=== PATIENT | male | born 1945 | race Caucasian/White ===

== ENCOUNTER 2020-03-05 13:00 | Inpatient (IN) | payer MEDICARE, BC ==
[~2020-03-05] VITALS: Ht 188 cm; Wt 65.8 kg
--- NOTE | 2020-03-05 13:27 | NUR ---
Patient seen by Dr. Meier..
[2020-03-05 13:42] LABS: BASOPHILS # (AUTO) 0.1 K/uL (0.0-8.0); EOSINOPHILS # (AUTO) 0.1 K/uL (0.0-0.7); HEMATOCRIT 21.4 % (36.7-47.1); LYMPHOCYTES # (AUTO) 1.2 K/uL (20.0-40.0); MONOCYTES # (AUTO) 2.3 K/uL (2.0-10.0)
[2020-03-05] MEDS ORDERED: [UNRECOGNIZED DRUG - CODE] GT (13:48)
[2020-03-05] MEDS ORDERED: INSU3INS6 SQ (13:48)
[2020-03-05] MEDS ORDERED: OMEP20CA15 GT (13:48)
[2020-03-05] MEDS ORDERED: IPRA4AER IH (13:48)
[2020-03-05] MEDS ORDERED: ATOR10TA GT (13:48)
[2020-03-05] MEDS ORDERED: MULT-213 GT (13:48)
[2020-03-05] MEDS ORDERED: MELA5TAB GT (13:48)
[2020-03-05] MEDS ORDERED: LEVO200T9 GT (13:48)
[2020-03-05] MEDS ORDERED: ZINC1CAP2 GT (13:48)
[2020-03-05] MEDS ORDERED: NITR100C6 GT (13:48)
[2020-03-05] MEDS ORDERED: ASCO500C16 GT ×2 (13:48)
[2020-03-05] MEDS ORDERED: LOPE-195 GT (13:48)
[2020-03-05 13:50] LABS: BASOPHILS % (AUTO) 0.8 % (0.0-2.0); EOSINOPHILS % (AUTO) 0.6 % (0.0-7.0); LYMPHOCYTES % (AUTO) 8.9 % (20.5-51.5); MEAN CORPUSCULAR HEMOGLOBIN 25.7 uug (23.8-33.4); MEAN CORPUSCULAR HGB CONC 31 g/dL (32.5-36.3); MEAN CORPUSCULAR VOLUME 82.8 fL (73.0-96.2); MONOCYTES % (AUTO) 16.8 % (0.0-11.0); NEUTROPHILS # (AUTO) 10.1 K/uL (1.8-8.9); NEUTROPHILS % (AUTO) 72.9 % (38.5-71.5); PLATELET COUNT (AUTO) 275 K/uL (152-348); RED BLOOD CELL COUNT(AUTO) 2.58 MIL/uL (4.06-5.63); WHITE BLOOD COUNT (AUTO) 13.8 K/uL (3.6-10.2)
--- NOTE | 2020-03-05 13:50 | NUR ---
A call to [facility] as informed Dr. Harmon is designated admitting physician. Message left, Awaiting call back. Addendum: 03/05/20 at 1406 by ANDREA The call was for Dr. Berman.
[2020-03-05 13:51] LABS: HEMOGLOBIN 6.6 g/dL (12.5-16.3)
[2020-03-05 13:52] LABS: ALANINE AMINOTRANSFERASE 24 U/L (16-63); ALKALINE PHOSPHATASE 64 U/L (50-136); ASPARTATE AMINOTRANSFERASE 20 U/L (15-37); BILIRUBIN,DIRECT 0.2 mg/dL (0.0-0.2); BILIRUBIN,TOTAL 0.4 mg/dL (0.2-1.0); CARBON DIOXIDE 29 mmol/L (21-32); CHLORIDE 105 mmol/L (98-107); CREATININE 1.6 mg/dL (0.6-1.3); GLUCOSE 123 mg/dL (74-106); POTASSIUM 4.1 mmol/L (3.5-5.1); TOTAL PROTEIN, SERUM 6.6 g/dL (6.4-8.2); UREA NITROGEN, BLOOD 40 mg/dL (7-18)
--- NOTE | 2020-03-05 14:07 | NUR ---
A call from Dr. Peters and to report on the phone.
--- NOTE | 2020-03-05 14:12 | NUR ---
COvid test done and send.
[2020-03-05 14:15] LABS: BAND % (MANUAL) 1 % (0-10); LYMPHOCYTES % (MANUAL) 6 % (20-40); MONOCYTES % (MANUAL) 16 % (2-10); MYELOCYTES % 1 % (0-0); NEUTROPHILS % (MANUAL) 76 % (42-75)
--- NOTE | 2020-03-05 14:25 | NUR ---
Telephone report given to Netta Rangel. pt. will be going via [facility] to [facility] G-20 patent. Tache to mask 8 liters.
[2020-03-05 15:18] VITALS: BP 115/69
[2020-03-05 17:46] VITALS: BP 117/68
[2020-03-05 18:00] VITALS: BP 119/68
[2020-03-05] MEDS ORDERED: ACETAMINOPHEN 650 MG/20.3 ML LIQUID UDC GT PRN (18:45)
[2020-03-05] MEDS ORDERED: DEXTROSE 50% 50 ML DISP.SYRIN IV PRN (19:00)
[2020-03-05] MEDS ORDERED: Medication Not On Formulary EA (Melatonin 5 MG) GT SCH (19:00)
[2020-03-05] MEDS ORDERED: LOPERAMIDE HCL 2 MG CAPSULE GT PRN (19:00)
--- NOTE | 2020-03-05 19:17 | NUR ---
Patient currently receiving blood and tolerating without any vitals changes. patient continues to be on trach with 6L oxygen, gtube clamped. Mepilex placed on sacrum with open wound. No distress noted at this time, bed inlow position side rails up x2.
--- NOTE | 2020-03-05 19:45 | NUR ---
Received pt awake, alert and oriented x4. Pt with trach on 6L face mask , O2 sats up to 100%. No acute distress noted. Pt nonverbal but able to mouth words, able to make needs known. 1 Unit PRBC running at this time. Denies SOB, pain or discomfort. Urinal at bedside. Safety precautions maintained. Call light within reach. Continue plan of care.
[2020-03-05 20:00] VITALS: BP 113/75
[2020-03-05] MEDS: INSULIN GLARGINE,HUM 300 UNITS/3 ML CARTRIDGE SQ SCH (21:00)
[2020-03-05] MEDS: ATORVASTATIN 10 MG TABLET GT SCH (21:05)
[2020-03-05] MEDS: BLOOD SUGAR DIAGNOSTIC 1 EACH STRIP VI SCH (21:12)
[2020-03-05 22:00] LABS: BASOPHILS # (AUTO) 0.1 K/uL (0.0-8.0); BASOPHILS % (AUTO) 1.3 % (0.0-2.0); EOSINOPHILS # (AUTO) 0.1 K/uL (0.0-0.7); EOSINOPHILS % (AUTO) 1.2 % (0.0-7.0); HEMATOCRIT 26.4 % (36.7-47.1); LYMPHOCYTES # (AUTO) 1.2 K/uL (20.0-40.0); LYMPHOCYTES % (AUTO) 10.5 % (20.5-51.5); MEAN CORPUSCULAR HEMOGLOBIN 26.8 uug (23.8-33.4); MEAN CORPUSCULAR HGB CONC 32 g/dL (32.5-36.3); MEAN CORPUSCULAR VOLUME 84.2 fL (73.0-96.2); MONOCYTES % (AUTO) 17.5 % (0.0-11.0); NEUTROPHILS # (AUTO) 7.9 K/uL (1.8-8.9); NEUTROPHILS % (AUTO) 69.5 % (38.5-71.5); PLATELET COUNT (AUTO) 276 K/uL (152-348); RED BLOOD CELL COUNT(AUTO) 3.14 MIL/uL (4.06-5.63); WHITE BLOOD COUNT (AUTO) 11.3 K/uL (3.6-10.2)
[2020-03-05 22:10] LABS: HEMOGLOBIN 8.4 g/dL (12.5-16.3)
[2020-03-05 22:54] LABS: EOSINOPHILS % (MANUAL) 3 % (0-8); LYMPHOCYTES % (MANUAL) 9 % (20-40); MONOCYTES % (MANUAL) 13 % (2-10); NEUTROPHILS % (MANUAL) 75 % (42-75)
[2020-03-06] VITALS: BP 108/71
[2020-03-06] MEDS ORDERED: IPRATROPIUM/ALBUTEROL SULFATE 14.7 GM INHALER INH SCH
[2020-03-06] MEDS ORDERED: IPRATROPIUM/ALBUTEROL SULFATE 14.7 GM INHALER INH PRN
[2020-03-06 04:00] VITALS: BP_SYST 105; BP_SYST 108; BP_DIAS 59; BP_DIAS 65
[2020-03-06 04:45] LABS: *BILIRUBIN,URIN NEGATIVE (NEGATIVE); *BLOOD, URINE 3+ (NEGATIVE); *CLARITY,URINE CLOUDY (CLEAR); *COLOR,URINE YELLOW (YELLOW); *KETONES,URINE NEGATIVE (NEGATIVE); *UROBILINOGEN,URINE 0.2 E.U./dl (NORMAL); LEUKOCYTE ESTERASE ,URINE 3+ (NEGATIVE); NITRITE, URINE NEGATIVE (NEGATIVE); UGLUCOSE NEGATIVE (NEGATIVE)
[2020-03-06 05:01] LABS: *CREATININE,URINE 61.9 mg/dL (30-125); *URINE TOTAL PROTEIN RANDOM 194.8 mg/dL (<150/24HR)
[2020-03-06 05:11] LABS: BACTERIA,URINE MANY /HPF (NONE SEEN); RBC,URINE 50-80 /HPF (0-3); SQUAMOUS EPITHELIAL CELL,UR FEW /HPF (NONE SEEN); WBC,URINE 80-100 /HPF (0-3)
[2020-03-06 06:43] LABS: BASOPHILS # (AUTO) 0.1 K/uL (0.0-8.0); BASOPHILS % (AUTO) 0.9 % (0.0-2.0); EOSINOPHILS # (AUTO) 0.1 K/uL (0.0-0.7); HEMATOCRIT 27.8 % (36.7-47.1); HEMOGLOBIN 8.9 g/dL (12.5-16.3); LYMPHOCYTES # (AUTO) 1.4 K/uL (20.0-40.0); LYMPHOCYTES % (AUTO) 10.4 % (20.5-51.5); MEAN CORPUSCULAR HEMOGLOBIN 26.9 uug (23.8-33.4); MEAN CORPUSCULAR HGB CONC 32 g/dL (32.5-36.3); MEAN CORPUSCULAR VOLUME 83.8 fL (73.0-96.2); MONOCYTES % (AUTO) 15.2 % (0.0-11.0); NEUTROPHILS # (AUTO) 9.5 K/uL (1.8-8.9); NEUTROPHILS % (AUTO) 72.5 % (38.5-71.5); PLATELET COUNT (AUTO) 312 K/uL (152-348); RED BLOOD CELL COUNT(AUTO) 3.32 MIL/uL (4.06-5.63); WHITE BLOOD COUNT (AUTO) 13.1 K/uL (3.6-10.2)
[2020-03-06 06:57] LABS: IRON, SERUM 24 ug/dL (50-175)
[2020-03-06] MEDS ORDERED: LEVOTHYROXINE SODIUM 200 MCG TABLET GT SCH (07:00)
[2020-03-06 07:06] LABS: ALANINE AMINOTRANSFERASE 28 U/L (16-63); ALKALINE PHOSPHATASE 69 U/L (50-136); ASPARTATE AMINOTRANSFERASE 26 U/L (15-37); BILIRUBIN,TOTAL 0.5 mg/dL (0.2-1.0); CARBON DIOXIDE 29 mmol/L (21-32); CHLORIDE 106 mmol/L (98-107); CREATININE 1.6 mg/dL (0.6-1.3); FERRITIN 521 ng/mL (26-388); GLUCOSE 127 mg/dL (74-106); POTASSIUM 4.7 mmol/L (3.5-5.1); TOTAL PROTEIN, SERUM 7.1 g/dL (6.4-8.2); UREA NITROGEN, BLOOD 33 mg/dL (7-18)
--- NOTE | 2020-03-06 07:30 | NUR ---
Received patient in bed, awake, AOx4 to self. No signs of distress seen at this time. Rt. AC HL in place and flushed. Safety and fall prevention in place. Call light in reach, bed in low and locked position. All needs met at this time. Will continue to monitor.
[2020-03-06 08:04] LABS: EOSINOPHILS % (MANUAL) 1 % (0-8); LYMPHOCYTES % (MANUAL) 7 % (20-40); MONOCYTES % (MANUAL) 14 % (2-10); NEUTROPHILS % (MANUAL) 78 % (42-75)
--- NOTE | 2020-03-06 08:14 | NUR ---
Pt remains awake, AxO x4. Denies pain, SOB or dizziness. Pt up to bedside commode with 1 person assist. BM x1 noted. Safety precautions maintained. Blood glucose monitoring. Call light within reach. Will endorse accordingly.
[2020-03-06] MEDS: BLOOD SUGAR DIAGNOSTIC 1 EACH STRIP VI SCH ×4 (08:17→21:10)
[2020-03-06] MEDS ORDERED: Medication Not On Formulary EA (Omeprazole 20 MG) GT SCH (09:00)
[2020-03-06] MEDS: ZINC SULFATE 220 MG CAPSULE GT SCH (09:10)
[2020-03-06] MEDS: PANTOPRAZOLE ORAL SUSPENSION 40 MG SUSPDR.PKT GT SCH (09:10)
[2020-03-06] MEDS: LEVOTHYROXINE SODIUM 200 MCG TABLET GT SCH (09:55)
[2020-03-06] MEDS: GLUCERNA 1.2 1000ML LIQUID GT PRN (11:05)
--- NOTE | 2020-03-06 11:35 | NUR ---
WOUND CARE CONSULT: PT PRESENTS WITH FULL THICKNESS WOUND TO SACRAL AREA, PRESENT ON ADMISSION. RECOMMEND SURGICAL CONSULT. DR TIRADO NOTIFIED OF CONSULT REQUEST. PT IS ACTUALLY INDEPENDENT WITH BED MOBILITY AND CONTINENT. RECOMMENDATIONS MADE FOR SKIN PROTECTION. DISCUSSED WITH NURSING STAFF. WILL SEE PRN. ZHAO IN AGREEMENT WITH PLAN OF CARE.
[2020-03-06 12:00] VITALS: BP 116/71
[2020-03-06 16:11] VITALS: BP 99/57
[2020-03-06] MEDS: INSULIN REGULAR, HUMAN 300 UNIT/3 ML VIAL SQ PRN (16:46)
[2020-03-06] MEDS ORDERED: [UNRECOGNIZED DRUG - OTHER] GT SCH (18:00)
[2020-03-06] MEDS ORDERED: MULTIVITAMINS W MINERALS GT SCH (18:00)
--- NOTE | 2020-03-06 19:00 | NUR ---
Patient in bed, awake, AOx4 to self. No signs of distress. Rt. AC HL in place. Safety and fall prevention in place. Call light in reach, bed in low and locked position. All need met through shift. Will report to oncoming nurse.
--- NOTE | 2020-03-06 19:30 | NUR ---
RECEIVED PT IN NO ACUTE DISTRESS. IV INTACT.PT CAN MAKE HIS NEEDS KNOWN [facility] PT CAN'T TALK. GTUBE DWELLING WELL. SAFETY AND COMFORT PROVIDED. WILL CONTINUE TO MONITOR.
[2020-03-06 20:00] VITALS: BP 102/57
[2020-03-06] MEDS ORDERED: ATORVASTATIN 10 MG TABLET GT SCH (21:00)
[2020-03-06] MEDS: INSULIN GLARGINE,HUM 300 UNITS/3 ML CARTRIDGE SQ SCH (21:00)
[2020-03-06] MEDS: ATORVASTATIN 10 MG TABLET GT SCH (21:08)
[2020-03-06] MEDS: MULTIVIT, IRON, MIN NO. 8, FA TABLET GT SCH (21:08)
[2020-03-06] MEDS: MELATONIN 3 MG TABLET GT PRN (21:56)
--- NOTE | 2020-03-06 23:45 | NUR ---
Patient was transferred from 2nd floor, received via [facility]. Patient has no s/s of acute distress or pain. Patient on trach and 6L NC setting WNL. Patient on G tube with Glucerna 1.2 running at 75cc and tolerating well. Patient's vitals are stable. Safety measures in place, call light within reach. Will continue with the plan of care.
--- NOTE | 2020-03-06 23:45 | NUR ---
TRANSFERRED PT VIA [facility]UR[facility] IN 3RD FLOOR. HANDS OFF REPORT TO MERLY BARRY. PT IN NO ACUTE DISTRESS. IV INTACT. SAFETY AND COMFORT PROVIDED. VITAL SIGNS WITHIN NORMAL LIMIT.
[2020-03-06 23:50] VITALS: BP 104/62
[2020-03-07 04:25] VITALS: BP_SYST 109
[2020-03-07 05:59] LABS: BASOPHILS # (AUTO) 0.1 K/uL (0.0-8.0); BASOPHILS % (AUTO) 0.4 % (0.0-2.0); EOSINOPHILS # (AUTO) 0.1 K/uL (0.0-0.7); HEMATOCRIT 27.9 % (36.7-47.1); HEMOGLOBIN 8.6 g/dL (12.5-16.3); LYMPHOCYTES # (AUTO) 1.1 K/uL (20.0-40.0); LYMPHOCYTES % (AUTO) 7.4 % (20.5-51.5); MEAN CORPUSCULAR HGB CONC 31 g/dL (32.5-36.3); MEAN CORPUSCULAR VOLUME 84.3 fL (73.0-96.2); MONOCYTES # (AUTO) 1.4 K/uL (2.0-10.0); NEUTROPHILS # (AUTO) 11.6 K/uL (1.8-8.9); NEUTROPHILS % (AUTO) 81.2 % (38.5-71.5); PLATELET COUNT (AUTO) 284 K/uL (152-348); RED BLOOD CELL COUNT(AUTO) 3.31 MIL/uL (4.06-5.63); WHITE BLOOD COUNT (AUTO) 14.3 K/uL (3.6-10.2)
[2020-03-07 06:07] LABS: CARBON DIOXIDE 30 mmol/L (21-32); CHLORIDE 108 mmol/L (98-107); CREATININE 1.6 mg/dL (0.6-1.3); GLUCOSE 186 mg/dL (74-106); MAGNESIUM 2.4 mg/dL (1.8-2.4); POTASSIUM 5.1 mmol/L (3.5-5.1); UREA NITROGEN, BLOOD 34 mg/dL (7-18)
[2020-03-07] MEDS: BLOOD SUGAR DIAGNOSTIC 1 EACH STRIP VI SCH ×4 (06:40→21:04)
[2020-03-07] MEDS: INSULIN REGULAR, HUMAN 300 UNIT/3 ML VIAL SQ PRN ×2 (06:47→17:32)
--- NOTE | 2020-03-07 06:50 | NUR ---
Patient in bed, awake. Patient slept intermittently throughout the night. Patient denies any acute distress or pain. Patient on 6L NC setting WNL. Patient's G tube patent and intact, Glucerna 1.2 running at 75 cc, tolerating well. Patient's vitals are stable. Needs attended. Safety measures in place. Will endorse to the oncoming nurse accordingly.
[2020-03-07] MEDS: PANTOPRAZOLE ORAL SUSPENSION 40 MG SUSPDR.PKT GT SCH (08:15)
[2020-03-07] MEDS: ZINC SULFATE 220 MG CAPSULE GT SCH (08:15)
[2020-03-07] MEDS: LEVOTHYROXINE SODIUM 200 MCG TABLET GT SCH (08:16)
[2020-03-07] MEDS ORDERED: CEFTRIAXONE 1 G VIAL IM SCH (11:15)
[2020-03-07 12:00] VITALS: BP 100/60
[2020-03-07] MEDS: CEFTRIAXONE 1 G in IV DEXTROSE 5% 50 ML IV SCH (12:51)
[2020-03-07 16:00] VITALS: BP 109/64
[2020-03-07] MEDS: GLUCERNA 1.2 1000ML LIQUID GT PRN (17:53)
--- NOTE | 2020-03-07 19:00 | NUR ---
Patient in bed awake. Patient denies any acute distress or pain. Patient is on 6L trach and is setting WNL. Patient's Gtube is intact and patent on Glucerna 1.2 running at 75cc, patient tolerating well. Patient is afebrile. Patient's vitals are stable. Safety measures in place. Bed low and locked position. Call lights within reach will continue with the plan of care.
[2020-03-07 20:14] VITALS: BP 107/60
[2020-03-07] MEDS: ATORVASTATIN 10 MG TABLET GT SCH (20:49)
[2020-03-07] MEDS: MULTIVIT, IRON, MIN NO. 8, FA TABLET GT SCH (20:49)
[2020-03-07] MEDS: INSULIN GLARGINE,HUM 300 UNITS/3 ML CARTRIDGE SQ SCH (21:05)
[2020-03-07] MEDS: MELATONIN 3 MG TABLET GT PRN (21:09)
[2020-03-08 04:00] VITALS: BP 115/64
[2020-03-08 06:22] LABS: ALANINE AMINOTRANSFERASE 22 U/L (16-63); ALKALINE PHOSPHATASE 70 U/L (50-136); ASPARTATE AMINOTRANSFERASE 15 U/L (15-37); BILIRUBIN,TOTAL 0.2 mg/dL (0.2-1.0); CARBON DIOXIDE 30 mmol/L (21-32); CHLORIDE 107 mmol/L (98-107); CREATININE 1.6 mg/dL (0.6-1.3); GLUCOSE 163 mg/dL (74-106); MAGNESIUM 2.3 mg/dL (1.8-2.4); PHOSPHOROUS 4.1 mg/dL (2.5-4.9); POTASSIUM 4.6 mmol/L (3.5-5.1); TOTAL PROTEIN, SERUM 6.7 g/dL (6.4-8.2); UREA NITROGEN, BLOOD 31 mg/dL (7-18)
[2020-03-08 06:30] LABS: BASOPHILS # (AUTO) 0.1 K/uL (0.0-8.0); BASOPHILS % (AUTO) 0.8 % (0.0-2.0); EOSINOPHILS # (AUTO) 0.1 K/uL (0.0-0.7); EOSINOPHILS % (AUTO) 0.6 % (0.0-7.0); HEMATOCRIT 27.9 % (36.7-47.1); HEMOGLOBIN 8.7 g/dL (12.5-16.3); LYMPHOCYTES # (AUTO) 1.2 K/uL (20.0-40.0); LYMPHOCYTES % (AUTO) 7.9 % (20.5-51.5); MEAN CORPUSCULAR HEMOGLOBIN 26.6 uug (23.8-33.4); MEAN CORPUSCULAR HGB CONC 31 g/dL (32.5-36.3); MONOCYTES # (AUTO) 2.2 K/uL (2.0-10.0); MONOCYTES % (AUTO) 14.7 % (0.0-11.0); NEUTROPHILS # (AUTO) 11.2 K/uL (1.8-8.9); PLATELET COUNT (AUTO) 295 K/uL (152-348); RED BLOOD CELL COUNT(AUTO) 3.29 MIL/uL (4.06-5.63); WHITE BLOOD COUNT (AUTO) 14.8 K/uL (3.6-10.2)
[2020-03-08] MEDS ORDERED: PIPE3.379 IV (06:38)
[2020-03-08] MEDS: PANTOPRAZOLE ORAL SUSPENSION 40 MG SUSPDR.PKT GT SCH (06:49)
[2020-03-08] MEDS: LEVOTHYROXINE SODIUM 200 MCG TABLET GT SCH (06:50)
--- NOTE | 2020-03-08 07:00 | NUR ---
Patient slept intermittently throughout the night. Patient is awake and denies acute distress or pain. Patient on 6L trach at 100%. Patient's Gtube patent with Glucerna 1.2 running at 75 cc, tolerating well. Patient's IV patent and intact. Patient's vitals stable. Patient is afebrile. Needs attended. Safety measures in place. Bed low and locked in position. Will endorse to the oncoming nurse accordingly.
[2020-03-08] MEDS: BLOOD SUGAR DIAGNOSTIC 1 EACH STRIP VI SCH ×4 (07:01→20:29)
[2020-03-08] MEDS: INSULIN REGULAR, HUMAN 300 UNIT/3 ML VIAL SQ PRN ×3 (09:02→20:30)
[2020-03-08] MEDS: ZINC SULFATE 220 MG CAPSULE GT SCH (09:02)
[2020-03-08] MEDS: GLUCERNA 1.2 1000ML LIQUID GT PRN ×2 (09:45→23:27)
[2020-03-08] MEDS: CEFTRIAXONE 1 G in IV DEXTROSE 5% 50 ML IV SCH (11:38)
[2020-03-08 12:00] VITALS: BP 102/59
[2020-03-08 15:49] VITALS: BP 112/67
[2020-03-08 19:44] VITALS: BP 117/70
--- NOTE | 2020-03-08 20:00 | NUR ---
RECEIVED PATIENT AWAKE IN BED. A/O X4. PATIENT IS APHASIC, TRACH NOTED, BUT PATIENT IS ABLE TO MAKE NEEDS KNOWN. VS WNL. DENIES PAIN OR DISCOMFORT. TRACH MASK WITH 6L NOTED. H/L INTACT AND PATENT. GT INFUSING WELL. ON ASPIRATION PRECAUTIONS. CALL LIGHT IN REACH. ALL NEEDS ATTENDED. WILL CONTINUE TO MONITOR AND ASSESS.
[2020-03-08] MEDS: INSULIN GLARGINE,HUM 300 UNITS/3 ML CARTRIDGE SQ SCH (20:29)
[2020-03-08] MEDS: MELATONIN 3 MG TABLET GT PRN (21:06)
[2020-03-08] MEDS: ATORVASTATIN 10 MG TABLET GT SCH (21:06)
[2020-03-08] MEDS: MULTIVIT, IRON, MIN NO. 8, FA TABLET GT SCH (21:06)
[2020-03-09 04:41] VITALS: BP 119/65
[2020-03-09] MEDS: LEVOTHYROXINE SODIUM 200 MCG TABLET GT SCH (06:07)
[2020-03-09] MEDS: PANTOPRAZOLE ORAL SUSPENSION 40 MG SUSPDR.PKT GT SCH (06:07)
[2020-03-09] MEDS: BLOOD SUGAR DIAGNOSTIC 1 EACH STRIP VI SCH ×3 (06:32→16:57)
[2020-03-09] MEDS: INSULIN REGULAR, HUMAN 300 UNIT/3 ML VIAL SQ PRN ×2 (06:33→12:27)
--- NOTE | 2020-03-09 07:30 | NUR ---
on bed, resting well. anxious to go home. pending delivery of home o2.
[2020-03-09] MEDS: ZINC SULFATE 220 MG CAPSULE GT SCH (08:52)
[2020-03-09 11:30] VITALS: BP 115/67
--- NOTE | 2020-03-09 12:00 | NUR ---
made aware, possible delivery 1-4 pm. nodded
--- NOTE | 2020-03-09 14:39 | NUR ---
right antecubital heplock leaking,. removed. able to statr heplock on right hand but didnt like the placement, removed. inserted new line left upper forearm, #20 gauge, tolerated well, appreciative.
[2020-03-09 16:00] VITALS: BP 134/68
--- NOTE | 2020-03-09 18:04 | NUR ---
discharge home with 7 day supplies per special events plannerLinda. appreciative of care. left in fair condition with belongings via ambulance.
--- NOTE | 2020-03-12 16:19 | NUR ---
Clarification for Lakia from DR. Russo: no IV ATBs needed since the patient completed his course. Orders to home health noted and orders for Glucerna for GT feeding noted, GT and Trach supplies orders noted. Orders faxed to [facility] infusion services: [facility] phone [phone] [facility] fax:[phone]
--- NOTE | 2020-03-12 17:03 | NUR ---
Updates: the pt's progress notes faxed to [facility] as requested by Elizabet to F:[phone]. At 1532pm a call was placed to Ericka and updated her that GT feeding orders has been placed to [facility] and they are waiting to clear benefits and present to Medicare. Ericka was updated that orders for GT supplies were placed to both [facility] and [facility]. Trach supplies were also placed to both [facility] and sent to [facility] F:[phone].
--- NOTE | 2020-03-13 12:03 | NUR ---
1103am-Per Elizabet from [facility]: medicare is requesting a swallow evaluation and a trial standard formula before approving diabetic formula. 1115am-MD aware and per Dr. Russo new orders for swallow evaluation and standard formula. noted and carried out. 1150am-Orders faxed to [facility] F:[phone] P:[phone], orders faxed to [facility] F:[phone] P:[phone], orders faxed to [facility] F:[phone] P: [phone] 1225pm-A call was placed to Ericka and updated on the request from Medicare and the new orders. Ericka has agreed. Per Ericka: the has not been able to provide the pt with GT plunger/syringe. This salvage determiner informed ericka that the hospital will be able to provide her with one at least in the meantime. Per Ericka: she will have Kaden, caregiver come and cotton picking machine operator the plunger to provide feeding for the pt.
--- NOTE | 2020-03-13 17:03 | NUR ---
Spoke to Simi, computer systems administrator of [facility] and she confirmed that they are still following-up with the patient however, they do not want to use [facility] and would like to continue with their orders from [facility]. She confirmed that they already have the gtube feedings and all the necessary equipments for the trach. She also stated that the requested for the tube feeding to be bolus during the day and a pump at night. Asked if they still need any information to be faxed to them and they stated they do not at this time.
== END 2020-03-09 18:00 | disposition home health service (06) | DRG 811 ==
LOC: ER 13:00 → MED 14:24 → MEDSURG3 03-06 23:13
PROVIDERS: ADMIT Internal Medicine; ATTEND Internal Medicine
PROC: 30233N1 Transfusion of Nonautologous Red Blood Cells into Peripheral Vein, Percutaneous Approach (ICD-10-PCS; principal; 2020-03-05)
DX: D50.9 Iron deficiency anemia, unspecified (principal); L89.153 Pressure ulcer of sacral region, stage 3; N17.9 Acute kidney failure, unspecified; J96.11 Chronic respiratory failure with hypoxia; N39.0 Urinary tract infection, site not specified; G70.00 Myasthenia gravis without (acute) exacerbation; Z93.1 Gastrostomy status; Z93.0 Tracheostomy status; K21.9 Gastro-esophageal reflux disease without esophagitis; E78.5 Hyperlipidemia, unspecified; E03.9 Hypothyroidism, unspecified; N18.3 Chronic kidney disease, stage 3 (moderate); H91.90 Unspecified hearing loss, unspecified ear; Z85.51 Personal history of malignant neoplasm of bladder; R13.10 Dysphagia, unspecified; E11.22 Type 2 diabetes mellitus with diabetic chronic kidney disease; Z79.4 Long term (current) use of insulin; Z88.6 Allergy status to analgesic agent; Z85.830 Personal history of malignant neoplasm of bone
CPT/HCPCS: 36415; 70030-TC; 71045; 83550; 83605; 83615; 83735; 84100; 84156; 84300; 85025; 85730; 86140; 86850; 86900; 86901; 86920; 87086; 93005; A4217; A4663; G0378; J0696; J1815; J7060; P9016-BL; P9021; U0003-CS